=== PATIENT | male | born 1995 | race African-American/Black ===

== ENCOUNTER 2019-04-25 15:52 | Emergency (ER) | payer BC, OTHER ==
[~2019-04-25] VITALS: Ht 185.4 cm; Wt 124.3 kg
[2019-04-25] MEDS ORDERED: NAPROSYN500 MG PO (17:23)
[2019-04-25] MEDS ORDERED: NORFLEX100 MG PO (17:23)
[2019-04-25 17:50] VITALS: BP 125/71
== END 2019-04-25 17:51 | disposition home or self-care (01) ==
LOC: ER 15:52
DX: S39.012A Strain of muscle, fascia and tendon of lower back, initial encounter (principal); S16.1XXA Strain of muscle, fascia and tendon at neck level, initial encounter; Z87.891 Personal history of nicotine dependence; V49.59XA Passenger injured in collision with other motor vehicles in traffic accident, initial encounter; Y92.89 Other specified places as the place of occurrence of the external cause; Y93.89 Activity, other specified; Y99.8 Other external cause status